=== PATIENT | male | born 1975 | race Caucasian/White ===

== ENCOUNTER 2020-12-18 14:47 | Inpatient (IN) ==
[2020-12-18] MEDS ORDERED: Ipratropium/Albuterol Neb 3 ML IH ONE (15:23)
[2020-12-18] MEDS ORDERED: 0.9 % Sodium Chloride 1,000 ML IVC ONE (15:23)
[2020-12-18] MEDS ORDERED: Acetaminophen 325 MG TABLET PO ONE (15:24)
[2020-12-18 15:59] LABS: Basophils % 0.5 %; Hematocrit 46.6 % (37.5-50.1); Immature Granulocytes % 1.7 % (0-4); Lymphocytes % 10.7 %; Mean Corpuscular HGB Conc 34.3 g/dL (31.6-35.5); Mean Corpuscular Hemoglobin 27.4 pg (28.0-33.3); Mean Corpuscular Volume 79.8 fL (83.0-100.0); Mean Platelet Volume 8.7 fL (9.4-12.4); Monocytes # 0.8 K/mcL (0.0-1.3); Monocytes % 8.8 %; Platelet Count 257 K/mcL (140-400); Red Blood Count 5.84 M/mcL (4.19-5.50); Red Cell Distribution Width 13.4 % (11.5-14.5); Segmented Neutrophils % 78.3 %
[2020-12-18 16:00] LABS: White Blood Count 8.9 K/mcL (4.3-11.1)
[2020-12-18] MEDS ORDERED: Ipratropium 1 PUFF INHALER IH ONE (16:10)
[2020-12-18 16:11] LABS: ABG Base Excess 1 mEq/L (-2 to 3); ABG HCO3 24 mEq/L (21-27); ABG Oxygen Saturation 97 % (95-98); ABG PCO2 35 mmHg (35-45); ABG PH 7.45 pH Units (7.32-7.45); ABG PO2 82 mmHg (85-104); ABG TCO2 26 mEq/L (20-26)
[2020-12-18 16:24] LABS: Alanine Aminotransferase 36 Units/L (7-52); Albumin 4.1 g/dL (3.5-5.7); Albumin/Globulin Ratio 1.1 (1.1-2.2); Alkaline Phosphatase 41 Units/L (34-104); Aspartate Amino Transferase 72 Units/L (13-39); BUN/Creatinine Ratio 21 (6-26); Blood Urea Nitrogen 19 mg/dL (6-20); Calcium 8.9 mg/dL (8.6-10.3); Carbon Dioxide 26 mEq/L (23-29); Chloride 92 mEq/L (98-107); Globulin 3.6 g/dL (2.4-3.5); Glucose 124 mg/dL (70-105); Osmolality,Calculated 268 (280-300); Sodium 127 mEq/L (136-145); Total Protein 7.7 g/dL (6.4-8.9); Troponin I < 0.03 ng/mL (< 0.04); eGFR For African Americans > 60 (> 60); eGFR For Non-African Americans > 60 (> 60)
[2020-12-18] MEDS ORDERED: Acetaminophen 325 MG TABLET PO PRN (16:42)
[2020-12-18] MEDS ORDERED: Naloxone 0.4 MG/ML INJ IVP PRN (16:42)
[2020-12-18 17:22] LABS: INR 1.2
[2020-12-18 17:24] LABS: Activated Partial Thrombo Time 29.6 Seconds (26.0-36.0)
[2020-12-18] MEDS ORDERED: Perflutren Lipid Microsphere 1.3 ML in 0.9 % Sodium Chloride 8.7 ML IVP PRN (17:24)
[2020-12-18] MEDS ORDERED: Remdesivir 200 MG in 0.9 % Sodium Chloride 100 ML IVPB ONE (17:25)
[2020-12-18 17:26] LABS: C-Reactive Protein 55 mg/L (Less than 10); Lactate Dehydrogenase 658 Units/L (140-271)
[2020-12-18] MEDS ORDERED: Furosemide 20 MG/2 ML VIAL IVP SCH (17:30)
[2020-12-18 17:50] LABS: Ferritin > 1500 ng/mL (20-250)
[2020-12-18] MEDS: cefTRIAXone 1,000 MG in Water for inj. (sterile) 10 ML IVP SCH (19:29)
[2020-12-18] MEDS: 0.9 % Sodium Chloride 1,000 ML IVC SCH (19:29)
[2020-12-18] MEDS: Azithromycin 500 MG in 0.9 % Sodium Chloride 250 ML IVPB SCH (19:30)
[2020-12-18] MEDS: Furosemide 20 MG/2 ML VIAL IVP SCH (20:43)
[2020-12-18] MEDS: Ipratropium 1 PUFF INHALER IH SCH (23:13)
[2020-12-18] MEDS ORDERED: *HR* LORazepam 2 MG/ML VIAL IVP ONE (23:16)
[2020-12-19] MEDS: 0.9 % Sodium Chloride 1,000 ML IVC SCH (01:58)
[2020-12-19 02:14] LABS: Basophils % 0.5 %; Hematocrit 45.3 % (37.5-50.1); Hemoglobin 15.8 g/dL (12.9-16.9); Immature Granulocytes % 1.8 % (0-4); Lymphocytes # 0.7 K/mcL (0.6-4.6); Lymphocytes % 11.3 %; Mean Corpuscular HGB Conc 34.9 g/dL (31.6-35.5); Mean Corpuscular Hemoglobin 28.2 pg (28.0-33.3); Mean Corpuscular Volume 80.7 fL (83.0-100.0); Mean Platelet Volume 8.8 fL (9.4-12.4); Monocytes # 0.6 K/mcL (0.0-1.3); Monocytes % 8.7 %; Neutrophils # 5.1 K/mcL (1.6-8.9); Platelet Count 243 K/mcL (140-400); Red Blood Count 5.61 M/mcL (4.19-5.50); Red Cell Distribution Width 13.5 % (11.5-14.5); Segmented Neutrophils % 77.7 %; White Blood Count 6.5 K/mcL (4.3-11.1)
[2020-12-19 02:19] LABS: Albumin 3.7 g/dL (3.5-5.7); Bilirubin,Direct 0.2 mg/dL (0.0-0.2); Bilirubin,Indirect 0.5 mg/dL (0.0-1.0); Bilirubin,Total 0.7 mg/dL (0.3-1.0); Globulin 3.7 g/dL (2.4-3.5); Total Protein 7.4 g/dL (6.4-8.9)
[2020-12-19 02:24] LABS: BUN/Creatinine Ratio 24 (6-26); Blood Urea Nitrogen 19 mg/dL (6-20); Calcium 8.7 mg/dL (8.6-10.3); Carbon Dioxide 27 mEq/L (23-29); Chloride 99 mEq/L (98-107); Glucose 156 mg/dL (70-105); Magnesium 2.5 mg/dL (1.6-2.6); Osmolality,Calculated 287 (280-300); Phosphorous 3.5 mg/dL (2.7-4.5); Sodium 136 mEq/L (136-145); eGFR For African Americans > 60 (> 60); eGFR For Non-African Americans > 60 (> 60)
[2020-12-19] MEDS: Ipratropium 1 PUFF INHALER IH SCH ×4 (03:54→19:37)
[2020-12-19] MEDS: *HR* Enoxaparin 40 MG/0.4 ML SYRINGE SQ SCH (05:26)
[2020-12-19] MEDS: Furosemide 20 MG/2 ML VIAL IVP SCH (08:38)
[2020-12-19] MEDS: cefTRIAXone 1,000 MG in Water for inj. (sterile) 10 ML IVP SCH (08:38)
[2020-12-19] MEDS: Ondansetron 4 MG/2 ML VIAL IVP PRN (08:55)
[2020-12-19] MEDS: Remdesivir 100 MG in 0.9 % Sodium Chloride 100 ML IVPB SCH (17:57)
[2020-12-19] MEDS: Azithromycin 500 MG in 0.9 % Sodium Chloride 250 ML IVPB SCH (17:58)
[2020-12-20] MEDS: Ipratropium 1 PUFF INHALER IH SCH ×4 (04:08→21:46)
[2020-12-20 05:31] LABS: Alanine Aminotransferase 31 Units/L (7-52); Albumin 3.7 g/dL (3.5-5.7); Albumin/Globulin Ratio 1.1 (1.1-2.2); Alkaline Phosphatase 39 Units/L (34-104); Aspartate Amino Transferase 49 Units/L (13-39); BUN/Creatinine Ratio 41 (6-26); Bilirubin,Direct 0.2 mg/dL (0.0-0.2); Bilirubin,Indirect 0.6 mg/dL (0.0-1.0); Bilirubin,Total 0.8 mg/dL (0.3-1.0); Blood Urea Nitrogen 27 mg/dL (6-20); Carbon Dioxide 27 mEq/L (23-29); Chloride 101 mEq/L (98-107); Globulin 3.5 g/dL (2.4-3.5); Glucose 125 mg/dL (70-105); Magnesium 2.7 mg/dL (1.6-2.6); Osmolality,Calculated 291 (280-300); Phosphorous 3.4 mg/dL (2.7-4.5); Potassium 3.9 mEq/L (3.5-5.1); Sodium 137 mEq/L (136-145); Total Protein 7.2 g/dL (6.4-8.9); eGFR For African Americans > 60 (> 60); eGFR For Non-African Americans > 60 (> 60)
[2020-12-20] MEDS: *HR* Enoxaparin 40 MG/0.4 ML SYRINGE SQ SCH (05:38)
[2020-12-20 05:57] LABS: Basophils # 0.1 K/mcL (0.0-0.2); Basophils % 0.6 %; Hematocrit 48.9 % (37.5-50.1); Hemoglobin 16.1 g/dL (12.9-16.9); Immature Granulocytes % 2.1 % (0-4); Lymphocytes # 1.1 K/mcL (0.6-4.6); Lymphocytes % 11.8 %; Mean Corpuscular HGB Conc 32.9 g/dL (31.6-35.5); Mean Corpuscular Hemoglobin 27.1 pg (28.0-33.3); Mean Corpuscular Volume 82.2 fL (83.0-100.0); Mean Platelet Volume 9.1 fL (9.4-12.4); Monocytes # 0.8 K/mcL (0.0-1.3); Monocytes % 7.9 %; Neutrophils # 7.5 K/mcL (1.6-8.9); Platelet Count 270 K/mcL (140-400); Red Blood Count 5.95 M/mcL (4.19-5.50); Red Cell Distribution Width 13.7 % (11.5-14.5); Segmented Neutrophils % 77.6 %; White Blood Count 9.7 K/mcL (4.3-11.1)
[2020-12-20] MEDS: cefTRIAXone 1,000 MG in Water for inj. (sterile) 10 ML IVP SCH (08:29)
[2020-12-20] MEDS: Cholecalciferol (D-3) 1,000 UNIT (25MCG) TABLET PO SCH (08:30)
[2020-12-20] MEDS: Azithromycin 500 MG in 0.9 % Sodium Chloride 250 ML IVPB SCH (16:45)
[2020-12-20] MEDS: Remdesivir 100 MG in 0.9 % Sodium Chloride 100 ML IVPB SCH (17:12)
[2020-12-20] MEDS ORDERED: *HR* LORazepam 2 MG/ML VIAL IVP ONE (23:21)
[2020-12-21 02:10] LABS: Hematocrit 46.1 % (37.5-50.1); Hemoglobin 15.6 g/dL (12.9-16.9); Mean Corpuscular HGB Conc 33.8 g/dL (31.6-35.5); Mean Corpuscular Hemoglobin 28.3 pg (28.0-33.3); Mean Corpuscular Volume 83.5 fL (83.0-100.0); Mean Platelet Volume 8.4 fL (9.4-12.4); Platelet Count 277 K/mcL (140-400); Red Blood Count 5.52 M/mcL (4.19-5.50); Red Cell Distribution Width 13.8 % (11.5-14.5); White Blood Count 9.8 K/mcL (4.3-11.1)
[2020-12-21 02:26] LABS: BUN/Creatinine Ratio 41 (6-26); Blood Urea Nitrogen 28 mg/dL (6-20); Calcium 8.7 mg/dL (8.6-10.3); Carbon Dioxide 23 mEq/L (23-29); Chloride 104 mEq/L (98-107); Glucose 133 mg/dL (70-105); Magnesium 2.5 mg/dL (1.6-2.6); Osmolality,Calculated 291 (280-300); Phosphorous 3.3 mg/dL (2.7-4.5); Potassium 4.2 mEq/L (3.5-5.1); Sodium 137 mEq/L (136-145); eGFR For African Americans > 60 (> 60); eGFR For Non-African Americans > 60 (> 60)
[2020-12-21 02:27] LABS: Albumin 3.6 g/dL (3.5-5.7); Albumin/Globulin Ratio 1.2 (1.1-2.2); Bilirubin,Direct 0.3 mg/dL (0.0-0.2); Bilirubin,Indirect 0.5 mg/dL (0.0-1.0); Bilirubin,Total 0.8 mg/dL (0.3-1.0); Total Protein 6.6 g/dL (6.4-8.9)
[2020-12-21 02:40] LABS: Lymphocytes # 1.6 K/mcL (0.6-4.6); Monocytes # 0.8 K/mcL (0.0-1.3); Neutrophils # 7.5 K/mcL (1.6-8.9); Platelet Estimate Normal (Normal); Reactive Lymphocytes Present (Not Present)
[2020-12-21] MEDS: Ipratropium 1 PUFF INHALER IH SCH ×4 (04:30→20:40)
[2020-12-21] MEDS: *HR* Enoxaparin 40 MG/0.4 ML SYRINGE SQ SCH (06:17)
[2020-12-21] MEDS: cefTRIAXone 1,000 MG in Water for inj. (sterile) 10 ML IVP SCH (07:58)
[2020-12-21] MEDS: Cholecalciferol (D-3) 1,000 UNIT (25MCG) TABLET PO SCH (07:58)
[2020-12-21] MEDS: Remdesivir 100 MG in 0.9 % Sodium Chloride 100 ML IVPB SCH (17:41)
[2020-12-21] MEDS: Ondansetron 4 MG/2 ML VIAL IVP PRN (20:29)
[2020-12-22 02:34] LABS: Albumin 3.6 g/dL (3.5-5.7); Albumin/Globulin Ratio 0.9 (1.1-2.2); Bilirubin,Direct 0.2 mg/dL (0.0-0.2); Bilirubin,Indirect 0.4 mg/dL (0.0-1.0); Bilirubin,Total 0.6 mg/dL (0.3-1.0); Globulin 3.8 g/dL (2.4-3.5); Total Protein 7.4 g/dL (6.4-8.9)
[2020-12-22 03:11] LABS: BUN/Creatinine Ratio 27 (6-26); Blood Urea Nitrogen 34 mg/dL (6-20); Calcium 8.9 mg/dL (8.6-10.3); Carbon Dioxide 19 mEq/L (23-29); Chloride 94 mEq/L (98-107); Glucose 245 mg/dL (70-105); Magnesium 2.1 mg/dL (1.6-2.6); Osmolality,Calculated 278 (280-300); Phosphorous 3.8 mg/dL (2.7-4.5); Potassium 3.5 mEq/L (3.5-5.1); Sodium 126 mEq/L (136-145); eGFR For African Americans > 60 (> 60); eGFR For Non-African Americans > 60 (> 60)
[2020-12-22] MEDS ORDERED: *HR* LORazepam 2 MG/ML VIAL IVP ONE (04:43)
[2020-12-22] MEDS: Ipratropium 1 PUFF INHALER IH SCH ×4 (04:44→21:01)
[2020-12-22] MEDS: *HR* Enoxaparin 40 MG/0.4 ML SYRINGE SQ SCH (04:55)
[2020-12-22 07:54] LABS: Basophils # 0.1 K/mcL (0.0-0.2); Basophils % 0.5 %; Lymphocytes # 1.1 K/mcL (0.6-4.6); Lymphocytes % 6.7 %; Mean Corpuscular HGB Conc 33.1 g/dL (31.6-35.5); Mean Corpuscular Hemoglobin 27.8 pg (28.0-33.3); Mean Corpuscular Volume 83.9 fL (83.0-100.0); Mean Platelet Volume 8.8 fL (9.4-12.4); Monocytes # 1.1 K/mcL (0.0-1.3); Monocytes % 6.6 %; Neutrophils # 13.9 K/mcL (1.6-8.9); Platelet Count 309 K/mcL (140-400); Red Blood Count 6.08 M/mcL (4.19-5.50); Red Cell Distribution Width 13.8 % (11.5-14.5); Segmented Neutrophils % 84.2 %; White Blood Count 16.5 K/mcL (4.3-11.1)
[2020-12-22 07:57] LABS: Hemoglobin 16.9 g/dL (12.9-16.9)
[2020-12-22] MEDS: Cholecalciferol (D-3) 1,000 UNIT (25MCG) TABLET PO SCH (09:34)
[2020-12-22 09:52] LABS: ABG Base Excess 2 mEq/L (-2 to 3); ABG HCO3 26 mEq/L (21-27); ABG Oxygen Saturation 96 % (95-98); ABG PCO2 37 mmHg (35-45); ABG PH 7.46 pH Units (7.32-7.45); ABG PO2 77 mmHg (85-104); ABG TCO2 27 mEq/L (20-26)
[2020-12-22] MEDS ORDERED: Dexmedetomidine HCl 400 MCG/100 ML MLS IVC SCH (12:15)
[2020-12-22] MEDS ORDERED: Naloxone 0.4 MG/ML INJ IVP PRN (12:35)
[2020-12-22] MEDS ORDERED: Ondansetron 4 MG/2 ML VIAL IVP PRN (12:35)
[2020-12-22] MEDS ORDERED: Acetaminophen 325 MG TABLET PO PRN (12:35)
[2020-12-22] MEDS: Dexmedetomidine HCl 400 MCG/100 ML MLS IVC SCH (13:20)
[2020-12-22] MEDS ORDERED: Remdesivir 100 MG in 0.9 % Sodium Chloride 100 ML IVPB SCH (18:00)
[2020-12-22] MEDS: Famotidine 20 MG TABLET PO SCH (20:44)
[2020-12-23] MEDS: Ipratropium 1 PUFF INHALER IH SCH ×4 (03:51→21:20)
[2020-12-23 04:07] LABS: Bilirubin,Urine Negative (Negative); Blood,Urine Negative (Negative); Clarity,Urine Clear (Clear); Color,Urine Yellow (Yellow); Glucose,Urine (UA) Normal (Normal); Ketones,Urine Negative (Negative); Leukocyte Esterase,Urine Negative (Negative); Mucus,Urine Few per lpf (None-Few); Nitrite,Urine Negative (Negative); Protein,Urine 30 mg/dL (Neg-Trace); RBC,Urine 0-3 per hpf (0-3); Urobilinogen,Urine Normal (Normal); WBC,Urine 0-3 per hpf (0-3)
[2020-12-23 04:17] LABS: Protein/Creatinine Ratio,Urine 0.34 mg/mg (0.00-0.20); Sodium, Urine 32.1 mEq/L
[2020-12-23] MEDS: *HR* Enoxaparin 40 MG/0.4 ML SYRINGE SQ SCH (05:25)
[2020-12-23] MEDS: Dexmedetomidine HCl 400 MCG/100 ML MLS IVC SCH ×2 (05:27→22:39)
[2020-12-23] MEDS: Cholecalciferol (D-3) 1,000 UNIT (25MCG) TABLET PO SCH (09:19)
[2020-12-23] MEDS: Famotidine 20 MG TABLET PO SCH ×2 (09:19→20:24)
[2020-12-23 10:16] LABS: Basophils # 0.1 K/mcL (0.0-0.2); Basophils % 0.5 %; Eosinophils % 0.1 %; Hematocrit 53.9 % (37.5-50.1); Hemoglobin 17.3 g/dL (12.9-16.9); Immature Granulocytes % 1.5 % (0-4); Lymphocytes # 0.8 K/mcL (0.6-4.6); Lymphocytes % 4.9 %; Mean Corpuscular HGB Conc 32.1 g/dL (31.6-35.5); Mean Corpuscular Hemoglobin 27.5 pg (28.0-33.3); Mean Corpuscular Volume 85.8 fL (83.0-100.0); Mean Platelet Volume 8.4 fL (9.4-12.4); Monocytes # 0.6 K/mcL (0.0-1.3); Monocytes % 3.3 %; Neutrophils # 15.2 K/mcL (1.6-8.9); Platelet Count 215 K/mcL (140-400); Red Blood Count 6.28 M/mcL (4.19-5.50); Red Cell Distribution Width 13.8 % (11.5-14.5); Segmented Neutrophils % 89.7 %
[2020-12-23 10:37] LABS: Albumin 3.7 g/dL (3.5-5.7); Bilirubin,Direct 0.4 mg/dL (0.0-0.2); Bilirubin,Indirect 0.6 mg/dL (0.0-1.0); Globulin 3.7 g/dL (2.4-3.5); Total Protein 7.4 g/dL (6.4-8.9)
[2020-12-23 11:47] LABS: BUN/Creatinine Ratio 50 (6-26); Blood Urea Nitrogen 37 mg/dL (6-20); Calcium 9.3 mg/dL (8.6-10.3); Carbon Dioxide 24 mEq/L (23-29); Chloride 111 mEq/L (98-107); Glucose 129 mg/dL (70-105); Magnesium 2.6 mg/dL (1.6-2.6); Osmolality,Calculated 308 (280-300); Phosphorous 3.5 mg/dL (2.7-4.5); Potassium 4.3 mEq/L (3.5-5.1); Sodium 144 mEq/L (136-145); eGFR For African Americans > 60 (> 60); eGFR For Non-African Americans > 60 (> 60)
[2020-12-24 03:00] LABS: Basophils # 0.1 K/mcL (0.0-0.2); Basophils % 0.4 %; Eosinophils % 0.1 %; Immature Granulocytes % 1.5 % (0-4); Lymphocytes # 0.7 K/mcL (0.6-4.6); Lymphocytes % 4.4 %; Mean Corpuscular HGB Conc 32.4 g/dL (31.6-35.5); Mean Corpuscular Hemoglobin 27.5 pg (28.0-33.3); Mean Corpuscular Volume 84.7 fL (83.0-100.0); Mean Platelet Volume 8.9 fL (9.4-12.4); Monocytes # 0.5 K/mcL (0.0-1.3); Monocytes % 3.2 %; Neutrophils # 14.8 K/mcL (1.6-8.9); Platelet Count 210 K/mcL (140-400); Red Blood Count 6.55 M/mcL (4.19-5.50); Red Cell Distribution Width 13.8 % (11.5-14.5); Segmented Neutrophils % 90.4 %; White Blood Count 16.4 K/mcL (4.3-11.1)
[2020-12-24 03:03] LABS: Hematocrit 55.5 % (37.5-50.1)
[2020-12-24 03:18] LABS: BUN/Creatinine Ratio 50 (6-26); Blood Urea Nitrogen 38 mg/dL (6-20); Calcium 9.5 mg/dL (8.6-10.3); Carbon Dioxide 24 mEq/L (23-29); Chloride 114 mEq/L (98-107); Glucose 131 mg/dL (70-105); Magnesium 2.7 mg/dL (1.6-2.6); Osmolality,Calculated 315 (280-300); Phosphorous 3.1 mg/dL (2.7-4.5); Potassium 4.3 mEq/L (3.5-5.1); Sodium 147 mEq/L (136-145); eGFR For African Americans > 60 (> 60); eGFR For Non-African Americans > 60 (> 60)
[2020-12-24] MEDS: Ipratropium 1 PUFF INHALER IH SCH ×4 (03:26→22:02)
[2020-12-24] MEDS: *HR* Enoxaparin 40 MG/0.4 ML SYRINGE SQ SCH (04:38)
[2020-12-24] MEDS: Famotidine 20 MG TABLET PO SCH ×2 (07:47→20:05)
[2020-12-24] MEDS: D5% in 0.45% NACL 1,000 ML IVC SCH ×2 (08:54→23:28)
[2020-12-24] MEDS: Acetaminophen IV 1,000 MG/100 ML BAG IVPB PRN ×2 (10:06→17:34)
[2020-12-24] MEDS: Dexmedetomidine HCl 400 MCG/100 ML MLS IVC SCH (11:21)
[2020-12-24] MEDS: Cholecalciferol (D-3) 1,000 UNIT (25MCG) TABLET PO SCH (13:19)
[2020-12-24] MEDS: *HR* LORazepam 2 MG/ML VIAL IVP PRN (18:24)
[2020-12-25] MEDS: Dexmedetomidine HCl 400 MCG/100 ML MLS IVC SCH ×3 (02:59→15:25)
[2020-12-25] MEDS: Ipratropium 1 PUFF INHALER IH SCH ×4 (03:39→19:50)
[2020-12-25] MEDS: *HR* Enoxaparin 40 MG/0.4 ML SYRINGE SQ SCH (04:58)
[2020-12-25 05:49] LABS: BUN/Creatinine Ratio 46 (6-26); Blood Urea Nitrogen 37 mg/dL (6-20); Calcium 9.4 mg/dL (8.6-10.3); Carbon Dioxide 22 mEq/L (23-29); Chloride 117 mEq/L (98-107); Glucose 152 mg/dL (70-105); Magnesium 2.8 mg/dL (1.6-2.6); Osmolality,Calculated 320 (280-300); Phosphorous 2.5 mg/dL (2.7-4.5); Potassium 4.1 mEq/L (3.5-5.1); Sodium 149 mEq/L (136-145); eGFR For African Americans > 60 (> 60); eGFR For Non-African Americans > 60 (> 60)
[2020-12-25 06:01] LABS: Basophils # 0.1 K/mcL (0.0-0.2); Basophils % 0.3 %; Eosinophils # 0.1 K/mcL (0.0-0.6); Eosinophils % 0.5 %; Hemoglobin 18.3 g/dL (12.9-16.9); Immature Granulocytes % 1.8 % (0-4); Lymphocytes # 0.8 K/mcL (0.6-4.6); Lymphocytes % 4.2 %; Mean Corpuscular HGB Conc 32.2 g/dL (31.6-35.5); Mean Corpuscular Hemoglobin 27.6 pg (28.0-33.3); Mean Corpuscular Volume 85.8 fL (83.0-100.0); Mean Platelet Volume 9.4 fL (9.4-12.4); Monocytes # 0.5 K/mcL (0.0-1.3); Monocytes % 2.3 %; Neutrophils # 17.5 K/mcL (1.6-8.9); Platelet Count 179 K/mcL (140-400); Red Blood Count 6.63 M/mcL (4.19-5.50); Red Cell Distribution Width 14.6 % (11.5-14.5); Segmented Neutrophils % 90.9 %; White Blood Count 19.3 K/mcL (4.3-11.1)
[2020-12-25 06:06] LABS: Hematocrit 56.9 % (37.5-50.1)
[2020-12-25] MEDS: Cholecalciferol (D-3) 1,000 UNIT (25MCG) TABLET PO SCH (10:14)
[2020-12-25] MEDS: Famotidine 20 MG TABLET PO SCH ×2 (10:14→20:37)
[2020-12-25] MEDS: D5% in 0.45% NACL 1,000 ML IVC SCH (12:53)
[2020-12-25] MEDS ORDERED: Furosemide 40 MG/4 ML VIAL IVP ONE (16:24)
[2020-12-25] MEDS: *HR* LORazepam 2 MG/ML VIAL IVP PRN (20:13)
[2020-12-25] MEDS ORDERED: Morphine Sulfate 2 MG/ML SYRINGE IVP ONE (20:26)
[2020-12-26] MEDS: Dexmedetomidine HCl 400 MCG/100 ML MLS IVC SCH ×4 (00:04→20:36)
[2020-12-26] MEDS: D5% in 0.45% NACL 1,000 ML IVC SCH (00:15)
[2020-12-26] MEDS: Ipratropium 1 PUFF INHALER IH SCH ×4 (03:37→22:57)
[2020-12-26] MEDS: *HR* Enoxaparin 40 MG/0.4 ML SYRINGE SQ SCH (04:47)
[2020-12-26 05:10] LABS: Basophils # 0.1 K/mcL (0.0-0.2); Basophils % 0.3 %; Eosinophils # 0.1 K/mcL (0.0-0.6); Eosinophils % 0.2 %; Hemoglobin 18.5 g/dL (12.9-16.9); Immature Granulocytes % 1.5 % (0-4); Lymphocytes % 4.6 %; Mean Corpuscular HGB Conc 32.1 g/dL (31.6-35.5); Mean Corpuscular Volume 87.1 fL (83.0-100.0); Mean Platelet Volume 9.6 fL (9.4-12.4); Monocytes # 0.6 K/mcL (0.0-1.3); Monocytes % 2.6 %; Neutrophils # 20.3 K/mcL (1.6-8.9); Platelet Count 141 K/mcL (140-400); Red Blood Count 6.61 M/mcL (4.19-5.50); Red Cell Distribution Width 14.5 % (11.5-14.5); Segmented Neutrophils % 90.8 %; White Blood Count 22.3 K/mcL (4.3-11.1)
[2020-12-26 05:15] LABS: Hematocrit 57.6 % (37.5-50.1)
[2020-12-26] MEDS: Acetaminophen IV 1,000 MG/100 ML BAG IVPB PRN (05:25)
[2020-12-26 05:43] LABS: BUN/Creatinine Ratio 38 (6-26); Blood Urea Nitrogen 44 mg/dL (6-20); Calcium 9.5 mg/dL (8.6-10.3); Carbon Dioxide 24 mEq/L (23-29); Chloride 117 mEq/L (98-107); Glucose 137 mg/dL (70-105); Magnesium 2.8 mg/dL (1.6-2.6); Osmolality,Calculated 327 (280-300); Phosphorous 3.8 mg/dL (2.7-4.5); Potassium 4.5 mEq/L (3.5-5.1); Sodium 152 mEq/L (136-145); Triglycerides 263 mg/dL (< 150); eGFR For African Americans > 60 (> 60); eGFR For Non-African Americans > 60 (> 60)
[2020-12-26] MEDS ORDERED: *HR* Heparin 5,000 UNIT/ML VIAL IVP PRN ×2 (07:41)
[2020-12-26] MEDS ORDERED: *HR* Heparin 5,000 UNIT/ML VIAL IVP ONE (07:41)
[2020-12-26] MEDS: Famotidine 20 MG TABLET PO SCH ×2 (08:59→20:07)
[2020-12-26] MEDS: Cholecalciferol (D-3) 1,000 UNIT (25MCG) TABLET PO SCH (08:59)
[2020-12-26] MEDS: Heparin 25,000UNIT/250ML 1/2NS 25,000 UNIT/250 ML IV.SOLN IVC SCH (09:30)
[2020-12-26 09:56] LABS: Heparin anti-factor XA UFH 0.29 IU/mL (0.30-0.70); INR 1.3
[2020-12-26] MEDS ORDERED: D10% in Water 500 ML IVC PRN (10:12)
[2020-12-26] MEDS: *HR* LORazepam 2 MG/ML VIAL IVP PRN (10:36)
[2020-12-26] MEDS ORDERED: Morphine Sulfate 2 MG/ML SYRINGE ONE (10:43)
[2020-12-26] MEDS ORDERED: Morphine Sulfate 2 MG/ML SYRINGE IVP ONE (10:45)
[2020-12-26] MEDS ORDERED: FentaNYL (PF) 1,000 MCG/100 ML IV.SOLN IVC SCH (11:15)
[2020-12-26] MEDS: Norepinephrine 4 MG/254 ML IV.SOLN IVC SCH ×2 (11:21→20:06)
[2020-12-26] MEDS: Midazolam HCl 50 MG/100 ML IV.SOLN IVC SCH ×2 (11:21→20:37)
[2020-12-26] MEDS ORDERED: Artificial Tears SOLN 15 ML BOTTLE BOTH EYES PRN (11:43)
[2020-12-26 12:48] LABS: ABG Base Excess -4 mEq/L (-2 to 3); ABG HCO3 23 mEq/L (21-27); ABG Oxygen Saturation 92 % (95-98); ABG PCO2 48 mmHg (35-45); ABG PH 7.29 pH Units (7.32-7.45); ABG PO2 71 mmHg (85-104); ABG TCO2 25 mEq/L (20-26); Blood Gas Modality ASSIST CONTROL; Blood Gas VT 520 cc
[2020-12-26] MEDS: Artificial Tears SOLN 15 ML BOTTLE BOTH EYES SCH ×4 (14:26→23:59)
[2020-12-26] MEDS: FentaNYL (PF) 1,000 MCG/100 ML IV.SOLN IVC SCH ×2 (16:02→20:37)
[2020-12-26] MEDS ORDERED: Clinimix 5%-20% SOLUTION 2,000 ML with MVI, adult with vitamin K 10 ML, Potassium Pho... IVC SCH (17:00)
[2020-12-26] MEDS: Chlorhexidine Rinse 15 ML MOUTHWASH MM SCH (20:07)
[2020-12-26] MEDS ORDERED: Acetaminophen IV 1,000 MG/100 ML BAG IVPB ONE (20:10)
[2020-12-26] MEDS: Cisatracurium 200 MG in 0.9 % Sodium Chloride 180 ML IVC SCH (20:34)
[2020-12-26] MEDS ORDERED: Ringers Solution, Lactated 500 ML IVC ONE (21:05)
[2020-12-26] MEDS: Vancomycin 1,500 MG/265 ML IV.SOLN IVPB SCH (22:28)
[2020-12-26] MEDS: Budesonide/Formoterol 160/4.5 1 PUFF INH IH SCH (22:57)
[2020-12-26] MEDS: Cefepime HCl 2,000 MG in Water for inj. (sterile) 20 ML IVP SCH (23:59)
[2020-12-27] MEDS: Dexmedetomidine HCl 400 MCG/100 ML MLS IVC SCH ×2 (01:07→04:08)
[2020-12-27] MEDS: FentaNYL (PF) 1,000 MCG/100 ML IV.SOLN IVC SCH ×5 (01:57→23:59)
[2020-12-27] MEDS: Norepinephrine 4 MG/254 ML IV.SOLN IVC SCH ×3 (02:54→20:35)
[2020-12-27] MEDS: Ipratropium 1 PUFF INHALER IH SCH ×4 (03:27→20:29)
[2020-12-27 03:41] LABS: Basophils % 0.4 %
[2020-12-27 03:42] LABS: Basophils # 0.1 K/mcL (0.0-0.2); Immature Granulocytes % 1.7 % (0-4); Lymphocytes # 1.5 K/mcL (0.6-4.6); Lymphocytes % 5.4 %; Mean Corpuscular HGB Conc 30.3 g/dL (31.6-35.5); Mean Corpuscular Hemoglobin 27.8 pg (28.0-33.3); Mean Corpuscular Volume 91.8 fL (83.0-100.0); Mean Platelet Volume 10.5 fL (9.4-12.4); Monocytes # 1.1 K/mcL (0.0-1.3); Monocytes % 4.2 %; Neutrophils # 23.8 K/mcL (1.6-8.9); Platelet Count 164 K/mcL (140-400); Red Blood Count 6.11 M/mcL (4.19-5.50); Red Cell Distribution Width 14.3 % (11.5-14.5); Segmented Neutrophils % 88.3 %
[2020-12-27 03:51] LABS: Hematocrit 56.1 % (37.5-50.1)
[2020-12-27 03:59] LABS: VBG Ionized Calcium 1.12 mmol/L (1.15-1.35)
[2020-12-27 04:00] LABS: Albumin 3.1 g/dL (3.5-5.7); Albumin/Globulin Ratio 0.9 (1.1-2.2); Calcium 8.4 mg/dL (8.6-10.3); Globulin 3.4 g/dL (2.4-3.5); Phosphorous 4.2 mg/dL (2.7-4.5); Potassium 5.2 mEq/L (3.5-5.1); Total Protein 6.5 g/dL (6.4-8.9)
[2020-12-27 04:09] LABS: ABG Base Excess -4 mEq/L (-2 to 3); ABG HCO3 25 mEq/L (21-27); ABG Oxygen Saturation 91 % (95-98); ABG PCO2 62 mmHg (35-45); ABG PH 7.22 pH Units (7.32-7.45); ABG PO2 74 mmHg (85-104); ABG TCO2 27 mEq/L (20-26); Blood Gas VT 520 cc
[2020-12-27] MEDS ORDERED: Ringers Solution, Lactated 1,000 ML ONE (04:11)
[2020-12-27] MEDS ORDERED: Ringers Solution, Lactated 1,000 ML IVC ONE (04:12)
[2020-12-27] MEDS: Heparin 25,000UNIT/250ML 1/2NS 25,000 UNIT/250 ML IV.SOLN IVC SCH ×3 (04:17→22:32)
[2020-12-27] MEDS: Artificial Tears SOLN 15 ML BOTTLE BOTH EYES SCH ×6 (04:18→23:42)
[2020-12-27] MEDS: Pantoprazole 40 MG VIAL IVP SCH (08:37)
[2020-12-27] MEDS: Cholecalciferol (D-3) 1,000 UNIT (25MCG) TABLET PO SCH (08:38)
[2020-12-27] MEDS: Cefepime HCl 2,000 MG in Water for inj. (sterile) 20 ML IVP SCH ×3 (08:38→23:41)
[2020-12-27] MEDS: Chlorhexidine Rinse 15 ML MOUTHWASH MM SCH ×2 (08:38→20:34)
[2020-12-27] MEDS: Vancomycin 1,500 MG/265 ML IV.SOLN IVPB SCH (10:13)
[2020-12-27] MEDS: Budesonide/Formoterol 160/4.5 1 PUFF INH IH SCH ×2 (10:32→20:29)
[2020-12-27] MEDS: Midazolam HCl 50 MG/100 ML IV.SOLN IVC SCH ×2 (10:36→22:32)
[2020-12-27] MEDS ORDERED: *HR* Dextrose 50 % in Water (Syg) 50 ML SYRINGE IVP PRN (12:59)
[2020-12-27] MEDS ORDERED: Dextrose Gel 15 GM/37.5 ML TUBE PO PRN ×2 (12:59)
[2020-12-27] MEDS ORDERED: D5% in Water 1,000 ML IVC PRN (12:59)
[2020-12-27] MEDS: Insulin LISPRO 300 UNITS/3 ML VIAL SUBQ SCH ×3 (16:31→23:57)
[2020-12-27] MEDS ORDERED: Clinimix 5%-20% SOLUTION 2,000 ML with MVI, adult with vitamin K 10 ML, Potassium Pho... IVC SCH ×2 (17:00)
[2020-12-27] MEDS: Cisatracurium 200 MG in 0.9 % Sodium Chloride 180 ML IVC SCH (20:34)
[2020-12-28] MEDS: Norepinephrine 4 MG/254 ML IV.SOLN IVC SCH (03:38)
[2020-12-28] MEDS: Artificial Tears SOLN 15 ML BOTTLE BOTH EYES SCH ×5 (03:56→19:45)
[2020-12-28] MEDS: FentaNYL (PF) 1,000 MCG/100 ML IV.SOLN IVC SCH ×4 (04:37→20:59)
[2020-12-28] MEDS: Ipratropium 1 PUFF INHALER IH SCH ×4 (04:38→22:53)
[2020-12-28] MEDS: Insulin LISPRO 300 UNITS/3 ML VIAL SUBQ SCH ×5 (04:40→20:05)
[2020-12-28 04:47] LABS: Basophils # 0.1 K/mcL (0.0-0.2); Basophils % 0.3 %; Hematocrit 48.9 % (37.5-50.1); Hemoglobin 14.6 g/dL (12.9-16.9); Immature Granulocytes % 1.8 % (0-4); Lymphocytes # 1.9 K/mcL (0.6-4.6); Lymphocytes % 4.7 %; Mean Corpuscular HGB Conc 29.9 g/dL (31.6-35.5); Mean Corpuscular Hemoglobin 27.2 pg (28.0-33.3); Mean Corpuscular Volume 91.2 fL (83.0-100.0); Mean Platelet Volume 11.2 fL (9.4-12.4); Monocytes # 1.2 K/mcL (0.0-1.3); Platelet Count 159 K/mcL (140-400); Red Blood Count 5.36 M/mcL (4.19-5.50); Segmented Neutrophils % 90.2 %
[2020-12-28 04:48] LABS: ABG Base Excess -3 mEq/L (-2 to 3); ABG HCO3 25 mEq/L (21-27); ABG Oxygen Saturation 93 % (95-98); ABG PCO2 56 mmHg (35-45); ABG PH 7.26 pH Units (7.32-7.45); ABG PO2 79 mmHg (85-104); ABG TCO2 27 mEq/L (20-26); Blood Gas VT 520 cc
[2020-12-28 04:50] LABS: VBG Ionized Calcium 1.19 mmol/L (1.15-1.35)
[2020-12-28 04:50] LABS: Neutrophils # 35.5 K/mcL (1.6-8.9); White Blood Count 39.4 K/mcL (4.3-11.1)
[2020-12-28 05:02] LABS: Albumin 2.8 g/dL (3.5-5.7); Albumin/Globulin Ratio 0.9 (1.1-2.2); Bilirubin,Total 1.2 mg/dL (0.3-1.0); Calcium 8.7 mg/dL (8.6-10.3); Globulin 3.1 g/dL (2.4-3.5); Potassium 4.8 mEq/L (3.5-5.1); Total Protein 5.9 g/dL (6.4-8.9)
[2020-12-28 05:03] LABS: Magnesium 2.8 mg/dL (1.6-2.6); Phosphorous 3.7 mg/dL (2.7-4.5)
[2020-12-28] MEDS: Budesonide/Formoterol 160/4.5 1 PUFF INH IH SCH ×2 (07:57→22:53)
[2020-12-28] MEDS: Pantoprazole 40 MG VIAL IVP SCH (08:01)
[2020-12-28] MEDS: Cefepime HCl 2,000 MG in Water for inj. (sterile) 20 ML IVP SCH ×2 (08:01→16:55)
[2020-12-28] MEDS: Cholecalciferol (D-3) 1,000 UNIT (25MCG) TABLET PO SCH (08:02)
[2020-12-28] MEDS: Chlorhexidine Rinse 15 ML MOUTHWASH MM SCH ×2 (08:02→19:47)
[2020-12-28 09:04] LABS: Sodium, Urine 19.3 mEq/L
[2020-12-28] MEDS: Midazolam HCl 50 MG/100 ML IV.SOLN IVC SCH (11:07)
[2020-12-28] MEDS ORDERED: D10% in Water 500 ML IVC PRN (12:00)
[2020-12-28] MEDS: Norepinephrine 4 MG in D5% in Water 250 ML IVC SCH (14:17)
[2020-12-28] MEDS ORDERED: Clinimix 5%-20% SOLUTION 2,000 ML with MVI, adult with vitamin K 10 ML, Potassium Pho... IVC SCH (17:00)
[2020-12-28] MEDS: Cisatracurium 200 MG in 0.9 % Sodium Chloride 180 ML IVC SCH (19:45)
[2020-12-29] MEDS: Midazolam HCl 50 MG/100 ML IV.SOLN IVC SCH ×2 (00:01→14:07)
[2020-12-29] MEDS: Cefepime HCl 2,000 MG in Water for inj. (sterile) 20 ML IVP SCH ×4 (00:02→23:41)
[2020-12-29] MEDS: Artificial Tears SOLN 15 ML BOTTLE BOTH EYES SCH ×7 (00:02→23:41)
[2020-12-29] MEDS: Insulin LISPRO 300 UNITS/3 ML VIAL SUBQ SCH ×7 (00:43→23:58)
[2020-12-29] MEDS: FentaNYL (PF) 1,000 MCG/100 ML IV.SOLN IVC SCH ×4 (02:30→23:58)
[2020-12-29] MEDS: Ipratropium 1 PUFF INHALER IH SCH ×4 (03:16→22:16)
[2020-12-29 04:10] LABS: VBG Ionized Calcium 1.26 mmol/L (1.15-1.35)
[2020-12-29 04:17] LABS: Basophils % 0.2 %; Mean Corpuscular HGB Conc 30.7 g/dL (31.6-35.5); Mean Corpuscular Hemoglobin 27.9 pg (28.0-33.3); Red Blood Count 4.37 M/mcL (4.19-5.50)
[2020-12-29 04:19] LABS: Basophils # 0.1 K/mcL (0.0-0.2); Hematocrit 39.7 % (37.5-50.1); Hemoglobin 12.2 g/dL (12.9-16.9); Lymphocytes # 1.1 K/mcL (0.6-4.6); Lymphocytes % 3.6 %; Mean Corpuscular Volume 90.8 fL (83.0-100.0); Mean Platelet Volume 11.1 fL (9.4-12.4); Monocytes % 3.4 %; Platelet Count 127 K/mcL (140-400); Red Cell Distribution Width 14.7 % (11.5-14.5); Segmented Neutrophils % 90.8 %; White Blood Count 29.7 K/mcL (4.3-11.1)
[2020-12-29 04:35] LABS: Calcium 8.5 mg/dL (8.6-10.3); Magnesium 2.8 mg/dL (1.6-2.6); Phosphorous 3.6 mg/dL (2.7-4.5)
[2020-12-29 05:07] LABS: ABG Base Excess -5 mEq/L (-2 to 3); ABG HCO3 23 mEq/L (21-27); ABG Oxygen Saturation 100 % (95-98); ABG PCO2 54 mmHg (35-45); ABG PH 7.24 pH Units (7.32-7.45); ABG PO2 194 mmHg (85-104); ABG TCO2 25 mEq/L (20-26); Blood Gas VT 520 cc
[2020-12-29] MEDS: Budesonide/Formoterol 160/4.5 1 PUFF INH IH SCH ×2 (08:31→22:17)
[2020-12-29] MEDS ORDERED: Dexamethasone Sodium Phos/PF 10 MG/ML VIAL IVP SCH (09:00)
[2020-12-29] MEDS: Pantoprazole 40 MG VIAL IVP SCH (09:59)
[2020-12-29] MEDS: Cholecalciferol (D-3) 1,000 UNIT (25MCG) TABLET PO SCH (10:00)
[2020-12-29] MEDS: Chlorhexidine Rinse 15 ML MOUTHWASH MM SCH ×2 (10:01→19:54)
[2020-12-29] MEDS: Norepinephrine 4 MG in D5% in Water 250 ML IVC SCH (16:17)
[2020-12-29] MEDS ORDERED: Clinimix 5%-20% SOLUTION 2,000 ML with MVI, adult with vitamin K 10 ML, Potassium Pho... IVC SCH (17:00)
[2020-12-29] MEDS: Cisatracurium 200 MG in 0.9 % Sodium Chloride 180 ML IVC SCH (19:09)
[2020-12-29] MEDS: Heparin 25,000UNIT/250ML 1/2NS 25,000 UNIT/250 ML IV.SOLN IVC SCH (19:10)
[2020-12-29 22:24] VITALS: O2SAT 100
[2020-12-30] MEDS: Midazolam HCl 50 MG/100 ML IV.SOLN IVC SCH
[2020-12-30 00:07] VITALS: BP 104/71; PULSE 92; TEMP 97.2
== END 2020-12-30 01:00 | disposition short-term general hospital (02) | DRG 208 ==
LOC: 2ANU 14:47 → EMEROOARM 14:47 → SUATTDRO 17:40 → 2ANU 18:40 → 2NNU 12-22 12:35 → ICNU 12-26 19:28
PROVIDERS: ADMIT General Practice; ATTEND Internal Medicine